=== PATIENT | female | born 1930 | race Caucasian/White ===

== ENCOUNTER 2016-05-06 07:41 | Emergency (ER) | payer MEDICARE, MEDICAID ==
[~2016-05-06] VITALS: Ht 167.6 cm; Wt 83.5 kg
--- OUTSIDE RECORDS SUMMARY | 2016-05-06 07:48 | XMS REPORT ---
Author Author [facility] Organization [facility] Address [address] [place], [place] [address] Phone [phone] Care Team Providers Care [employer] Communications Sergeant Name Role Phone RAYMON PHAN MD PP [phone] Summary purpose CCDA Sent to [facility] Chief Complaint and Reason for Visit Admit Diagnosis 1 Sexually inappropriate behavior, aggress Problem list No authorized problems tracked for continuity of care are available for this visit. Encounters No authorized problems tracked for encounter diagnoses are available for this visit. Medications No medications recorded for this patient visit Allergies, adverse reactions, alerts No allergy information is available for this patient. Immunizations No immunizations recorded for this patient visit Relevant diagnostic tests and/or laboratory data No authorized results are available for this patient visit History of procedures No procedures recorded for this patient visit. Functional status No functional or cognitive status observations are available for this visit. Vital signs No authorized vital signs are available for this visit. Social history No Social History or smoking status observations were recorded for this visit. ( Unknown if ever smoked.) Treatment Plan No treatment plan text is available for this visit. Hospital discharge instructions No discharge instruction text is available for this visit.
[2016-05-06] MEDS ORDERED: LEVO50TA6 (07:58)
[2016-05-06] MEDS ORDERED: GABA-488 (07:58)
[2016-05-06] MEDS ORDERED: LACT10SO (07:58)
[2016-05-06] MEDS ORDERED: ALPR0.254 (07:58)
[2016-05-06] MEDS ORDERED: OXYB5TAB (07:58)
[2016-05-06] MEDS ORDERED: QUET25TA73 (07:58)
[2016-05-06 08:08] LABS: BILIRUBIN,URINE NEGATIVE (NEGATIVE); KETONES,URINE NEGATIVE (NEGATIVE); LEUKOCYTE ESTERASE ,URINE 1+ (NEGATIVE); NITRITE,URINE NEGATIVE (NEGATIVE); PH,URINE 7 (5-9); PROTEIN,URINE NEGATIVE (NEGATIVE); UROBILINOGEN,URINE NORMAL (NORMAL)
[2016-05-06 08:08] LABS: BASOPHILS % (AUTO) 0 % (0-10); EOSINOPHILS # (AUTO) 0.1 10^3/uL (0.0-0.3); EOSINOPHILS % (AUTO) 2 % (0-10); LYMPHOCYTES % (AUTO) 19 % (12-44); MEAN CORPUSCULAR HEMOGLOBIN 31 PG (25-34); MEAN CORPUSCULAR HGB CONC 33 G/DL (32-36); MEAN CORPUSCULAR VOLUME 94 FL (80-99); MEAN PLATELET VOLUME 10.3 FL (7.4-10.4); MONOCYTES # (AUTO) 0.4 X 10^3 (0.0-1.0); MONOCYTES % (AUTO) 8 % (0-12); NEUTROPHILS # (AUTO) 3.6 X 10^3 (1.8-7.8); NEUTROPHILS % (AUTO) 70 % (42-75); PLATELET COUNT 189 10^3/uL (130-400); RED BLOOD COUNT 4.77 10^6/uL (4.35-5.85); RED CELL DISTRIBUTION WIDTH 14.9 % (10.0-14.5); WHITE BLOOD COUNT 5.1 10^3/uL (4.3-11.0)
--- NOTE | 2016-05-06 08:09 | ED Trauma-Multisystem ---
General Chief Complaint: Trauma-Non Activation Stated Complaint: FALL/BACK PAIN Source of Information: Patient Exam Limitations: No Limitations History of Present Illness Time Seen by Provider: 08:03 Initial Comments The patient is in 86-year-old white female from the halfway in [place]. She is stated to be demented but ambulatory. She apparently had fallen at the facility. She had a noted skin change on her forehead and complained of pain in her legs. No deformity had been noted. She is very pleasant but clearly very demented Occurred: This Morning Pain/Injury Location: Head Method of Injury: Fall Associated Symptoms (Fall): Confusion Allergies and Home Medications Allergies Coded Allergies: codeine (Verified Allergy, Unknown, 05/06/16) Home Medications Alprazolam 0.25 Mg Tablet #120 (Reported) Gabapentin 300 Mg Capsule #90 (Reported) Lactulose 10 Gm/15 Ml Solution #946 (Reported) Levothyroxine Sodium 50 Mcg Tablet #30 (Reported) Oxybutynin Chloride 5 Mg Tab.er.24 #30 (Reported) Quetiapine Fumarate 25 Mg Tablet #120 (Reported) Constitutional: see HPI Eyes: No Symptoms Reported Ears: No Symptoms Reported Nose: No Symptoms Reported Mouth: No Symptoms Reported Throat: No Symptoms to Report Respiratory: no symptoms reported Cardiovascular: No Symptoms Reported Gastrointestinal: no symptoms reported Genitourinary: no symptoms reported Musculoskeletal: muscle pain Skin: no symptoms reported Psychiatric/Neurological: Cognitive Dysfunction Physical Exam Vital Signs Vital Sign - Last 12Hours 05/06/16 07:41 Temp 96.7 Pulse 72 Resp 18 B/P 134/82 Pulse Ox 96 O2 Delivery Room Air General Appearance: No Apparent Distress WD/WN Other (there is a small hematoma/abrasion at the hairline just left of the midline of the forehead) Eyes: Bilateral Eye Normal Inspection Ears, Nose, Throat: Hearing Grossly Normal No Evidence of ENT Injury No Dental Injury Neck: Full Range of Motion Normal Inspection Non Tender Supple Cardiovascular: Regular Rate, Rhythm No Edema No Gallop No JVD No Murmur Normal Peripheral Pulses Respiratory: Chest Non Tender Lungs Clear Normal Breath Sounds No Accessory Muscle Use No Respiratory Distress Back: Normal Inspection No CVA Tenderness No Vertebral Tenderness Extremity: Normal Capillary Refill Normal Inspection Normal Range of Motion Non Tender No Calf Tenderness No Pedal Edema Neurologic/Psychiatric: Alert No Motor/Sensory Deficits Normal Mood/Affect block trader II-XII Norm as Tested Lymphatic: No Adenopathy Comments There was a fresh hematoma over the left humeral head. There was tenderness to palpation but no apparent deformity. No bruising was noted over the hips or pelvis. There is no deformity evident and no rotation or shortening of the leg. A small hematoma was noted over the right patella. [place] Coma Score Best Eye Response ([place]): (4) Open Spontaneously Best Verbal Response ([place]): (5) Oriented Best Motor Response ([place]): (6) Obeys Commands Progress/Results/Core Measures Results/Orders Lab Results Laboratory Tests Test 05/06/16 07:50 05/06/16 07:55 Range/Units Urine Bacteria TRACE /HPF Urine Bilirubin NEGATIVE NEGATIVE Urine Casts NONE /LPF Urine Clarity CLEAR Urine Color YELLOW Urine Crystals NONE /LPF Urine Culture Indicated NO Urine Glucose (UA) NEGATIVE NEGATIVE Urine Ketones NEGATIVE NEGATIVE Urine Leukocyte Esterase 1+ H NEGATIVE Urine Mucus NEGATIVE /LPF Urine Nitrite NEGATIVE NEGATIVE Urine Protein NEGATIVE NEGATIVE Urine RBC NONE /HPF Urine RBC (Auto) NEGATIVE NEGATIVE Urine Specific [place] 1.010 L 1.016-1.022 Urine Squamous Epithelial Cells 0-2 /HPF Urine Urobilinogen NORMAL NORMAL MG/DL Urine WBC 0-2 /HPF Urine pH 7 5-9 Alanine Aminotransferase (ALT/SGPT) 14 0-55 U/L Albumin 3.4 3.2-4.5 G/DL Alkaline Phosphatase 57 40-136 U/L Anion Gap 10 5-14 MMOL/L Aspartate Amino Transf (AST/SGOT) 15 5-34 U/L BUN/Creatinine Ratio 14 Basophils # (Auto) 0.0 0.0-0.1 10^3/uL Basophils (%) (Auto) 0 0-10 % Blood Urea Nitrogen 12 7-18 MG/DL Calcium Level 8.6 8.5-10.1 MG/DL Carbon Dioxide Level 25 21-32 MMOL/L Chloride Level 108 H 98-107 MMOL/L Creatinine 0.85 0.60-1.30 MG/DL Eosinophils # (Auto) 0.1 0.0-0.3 10^3/uL Eosinophils (%) (Auto) 2 0-10 % Estimat Glomerular Filtration Rate > 60 Glucose Level 94 70-105 MG/DL Hematocrit 45 35-52 % Hemoglobin 14.6 11.5-16.0 G/DL Lymphocytes # (Auto) 1.0 1.0-4.0 X 10^3 Lymphocytes (%) (Auto) 19 12-44 % Mean Corpuscular Hemoglobin 31 25-34 PG Mean Corpuscular Hemoglobin Concent 33 32-36 G/DL Mean Corpuscular Volume 94 80-99 FL Mean Platelet Volume 10.3 7.4-10.4 FL Monocytes # (Auto) 0.4 0.0-1.0 X 10^3 Monocytes (%) (Auto) 8 0-12 % Neutrophils # (Auto) 3.6 1.8-7.8 X 10^3 Neutrophils (%) (Auto) 70 42-75 % Platelet Count 189 130-400 10^3/uL Potassium Level 4.0 3.6-5.0 MMOL/L Red Blood Count 4.77 4.35-5.85 10^6/uL Red Cell Distribution Width 14.9 H 10.0-14.5 % Sodium Level 143 135-145 MMOL/L Total Bilirubin 0.6 0.1-1.0 MG/DL Total Protein 5.6 L 6.4-8.2 G/DL White Blood Count 5.1 4.3-11.0 10^3/uL My Orders Orders-DEMETRICE REED MD Ct Head Wo (05/06/16 08:00) Cbc With Automated Diff (05/06/16 08:00) Comprehensive Metabolic Panel (05/06/16 08:00) Ua Culture If Indicated (05/06/16 08:00) Shoulder, Left, 3 Views (05/06/16 08:00) Pelvis (05/06/16 08:00) Saline Lock/Iv-Start (05/06/16 08:43) Vital Signs/I&O Vital Sign - Last 12Hours 05/06/16 07:41 Temp 96.7 Pulse 72 Resp 18 B/P 134/82 Pulse Ox 96 O2 Delivery Room Air Departure Communication Progress Notes CT of head was negative for intracranial pathology. X-rays of pelvis hips and left shoulder were also negative. Impression Impression: Primary Impression: fall Additional Impression: multiple contusions Disposition: 01 HOME, SELF-CARE Condition: Stable/Unchanged Departure-Patient Inst. Referrals: RAYMON PHAN MD (PCP/Family) Primary Care Physician DEMETRICE REED MD May 06, 2016 08:09
[2016-05-06 08:17] LABS: SQUAMOUS EPITHELIAL CELL,UR 0-2 /HPF; WBC,URINE 0-2 /HPF
[2016-05-06 08:24] LABS: ALANINE AMINOTRANSFERASE 14 U/L (0-55); ALBUMIN 3.4 G/DL (3.2-4.5); ANION GAP 10 MMOL/L (5-14); ASPARTATE AMINO TRANSFERASE 15 U/L (5-34); BILIRUBIN,TOTAL 0.6 MG/DL (0.1-1.0); BLOOD UREA NITROGEN 12 MG/DL (7-18); BUN/CREATININE RATIO 14; CALCIUM 8.6 MG/DL (8.5-10.1); CARBON DIOXIDE 25 MMOL/L (21-32); CHLORIDE 108 MMOL/L (98-107); CREATININE SERUM 0.85 MG/DL (0.60-1.30); GFR ESTIMATED > 60; GLUCOSE 94 MG/DL (70-105); SODIUM 143 MMOL/L (135-145); TOTAL PROTEIN 5.6 G/DL (6.4-8.2)
--- NOTE | 2016-05-06 08:49 | Diagnostic Imaging Report ---
PROCEDURE: CT head without contrast. TECHNIQUE: Multiple contiguous axial images were obtained through the brain without the use of intravenous contrast. INDICATION: Fell, bruise and swelling to left forehead. Comparison studies: None Findings: Noncontrast CT scanning of the head demonstrates moderate central and cortical atrophy and periventricular white matter disease. No focal areas of ischemia are present. No mass effect, midline shift or hemorrhage is seen. Soft tissue swelling is present over the left forehead. The paranasal sinuses and mastoid air cells are clear. IMPRESSION: 1. There is soft tissue swelling over the left forehead. 2. Atrophy and microvascular disease are present. Dictated by: Dictated on workstation # [id number]
--- NOTE | 2016-05-06 08:56 | Diagnostic Imaging Report ---
INDICATION: Left shoulder pain AP, oblique, and transscapular views of the left shoulder are obtained. No acute fracture or dislocation is seen. There is mild degenerative change of the AC joint. There is minimal distance between a comminuted humeral head suggesting chronic rotator cuff pathology. IMPRESSION: Chronic findings with no acute fracture or dislocation. Dictated by: Dictated on workstation # [id number]
--- NOTE | 2016-05-06 08:58 | Diagnostic Imaging Report ---
INDICATION: Found on floor with bilateral hip and back pain. FINDINGS: An AP view of the pelvis demonstrates postoperative changes to the left hip with no evidence of loosening. No fractures are present. Joint space narrowing is seen in both hips. IMPRESSION: There are no acute findings. Dictated by: Dictated on workstation # [id number]
[2016-05-06 10:42] VITALS: BP 189/90
== END 2016-05-06 10:46 ==
LOC: ER 07:44
DX: S00.81XA Abrasion of other part of head, initial encounter (principal); S80.01XA Contusion of right knee, initial encounter; S40.022A Contusion of left upper arm, initial encounter; F03.90 Unspecified dementia, unspecified severity, without behavioral disturbance, psychotic disturbance, mood disturbance, and anxiety; Z79.899 Other long term (current) drug therapy; W01.0XXA Fall on same level from slipping, tripping and stumbling without subsequent striking against object, initial encounter; Y92.129 Unspecified place in nursing home as the place of occurrence of the external cause; Y99.8 Other external cause status
CPT/HCPCS: 36415; 70450; 72170; 73030; 80053; 81000; 85025

== ENCOUNTER 2016-12-24 19:49 | Emergency (ER) | payer MEDICARE, MEDICAID ==
[~2016-12-24] VITALS: Ht 167.6 cm; Wt 83.5 kg
[~2016-12-24 19:49] MED LIST: ALPR0.254; GABA-488; LACT10SO; LEVO50TA6; OXYB5TAB; QUET25TA73
--- OUTSIDE RECORDS SUMMARY | 2016-12-24 20:00 | XMS REPORT ---
Author Author [facility] Medical Staff Organization [facility] Address [address] [place], [place] [id number] Phone [phone] Care Team Providers Care Production Utility Worker Name Role Phone RAYMON PHAN MD PP [phone] Summary purpose CCDA Sent to [facility] Chief Complaint and Reason for Visit No authorized Reason for Visit (Admitting Diagnosis) is available for this visit. Problem list No authorized problems tracked for [...] for this patient visit History of procedures Procedure Code Code Type Description Date Performed Performing Physician 34432 CPT-4 ELECTROCARDIOGRAM REPORT 04-24-2016 JOAN [place] Functional status No functional or cognitive status [...]
--- OUTSIDE RECORDS SUMMARY | 2016-12-24 20:00 | XMS REPORT | Continuity of Care Document ---
Author Author [facility] Address Unknown Phone Unavailable Allergies Medications Problems Date Dx Coded Attending Type Code Diagnosis Diagnosed By 05/04/2016 MILADY BANKS, COURTNEY Parnell F01.51 Vascular dementia with behavioral disturbance 05/04/2016 COURTNEY HENNING MD F31.13 Bipolar disord, crnt epsd manic w/o psych features, severe Procedures Results Encounters ACCT No. Visit Date/Time Discharge Status Pt. Type Provider Facility Loc./Unit Complaint [id number] 04/24/2016 19:40:00 05/04/2016 08 :10:00 DIS Inpatient COURTNEY HENNING MD [facility]
--- OUTSIDE RECORDS SUMMARY | 2016-12-24 20:00 | XMS REPORT ---
Author Author [facility] Medical Staff Organization [facility] Address [address] [place], [place] [id number] Phone [phone] Care Team Providers Care Senior Property Accountant Name Role Phone RAYMON PHAN MD PP [phone] Summary purpose CCDA Sent to [facility] Chief Complaint and Reason for Visit Admit [...]
[2016-12-24] MEDS ORDERED: NS IV 1000 ML 1,000 ML IV ONE (20:16)
[2016-12-24 20:34] LABS: BASOPHILS % (AUTO) 0 % (0-10); EOSINOPHILS # (AUTO) 0.1 10^3/uL (0.0-0.3); EOSINOPHILS % (AUTO) 1 % (0-10); LYMPHOCYTES # (AUTO) 0.8 X 10^3 (1.0-4.0); LYMPHOCYTES % (AUTO) 11 % (12-44); MEAN CORPUSCULAR HEMOGLOBIN 30 PG (25-34); MEAN CORPUSCULAR HGB CONC 33 G/DL (32-36); MEAN CORPUSCULAR VOLUME 92 FL (80-99); MEAN PLATELET VOLUME 10.5 FL (7.4-10.4); MONOCYTES # (AUTO) 0.5 X 10^3 (0.0-1.0); MONOCYTES % (AUTO) 7 % (0-12); NEUTROPHILS % (AUTO) 82 % (42-75); PLATELET COUNT 152 10^3/uL (130-400); RED CELL DISTRIBUTION WIDTH 14.6 % (10.0-14.5); WHITE BLOOD COUNT 7.4 10^3/uL (4.3-11.0)
[2016-12-24 20:55] LABS: ALANINE AMINOTRANSFERASE 9 U/L (0-55); ALBUMIN 3.6 GM/DL (3.2-4.5); ANION GAP 9 MMOL/L (5-14); ASPARTATE AMINO TRANSFERASE 16 U/L (5-34); BLOOD UREA NITROGEN 13 MG/DL (7-18); BUN/CREATININE RATIO 16; CALCIUM 9.5 MG/DL (8.5-10.1); CARBON DIOXIDE 27 MMOL/L (21-32); CHLORIDE 106 MMOL/L (98-107); CREATININE SERUM 0.79 MG/DL (0.60-1.30); GFR ESTIMATED > 60; GLUCOSE 134 MG/DL (70-105); MAGNESIUM 2.3 MG/DL (1.8-2.4); POTASSIUM 4.2 MMOL/L (3.6-5.0); SODIUM 142 MMOL/L (135-145); TOTAL PROTEIN 6.3 GM/DL (6.4-8.2)
[2016-12-24 21:15] LABS: TROPONIN I < 0.30 NG/ML (<0.30)
--- NOTE | 2016-12-24 21:29 | Diagnostic Imaging Report ---
INDICATION: Post fall. TECHNIQUE: Single-view chest, 9:14 p.m. CORRELATION STUDY: None. FINDINGS: Heart size is within normal limits. Mediastinum is prominent and slightly widened. Vasculature is slightly prominent as well. Prominent interstitial markings, likely chronic in nature. No definitive superimposed infiltrate, effusion, or pneumothorax. No acute appearing displaced fracture. IMPRESSION: 1. Likely chronic change in the lung parenchyma. Mediastinum is somewhat prominent, maybe owing to tortuous ectatic thoracic aorta. Dictated by: Dictated on workstation # [id number]
--- NOTE | 2016-12-24 21:33 | Diagnostic Imaging Report ---
INDICATION: Post fall TECHNIQUE: AP pelvis 9:14 PM CORRELATION STUDY: 05/06/2016 FINDINGS: Surgical change of the proximal left femur again demonstrated with incomplete visualization of the hardware. Joint space narrowing present. The right hip appears to be maintained apart from mild narrowing. Pelvis is intact. Apparent suture line in the midline of the pelvis. SI joints unremarkable. IMPRESSION: Negative for acute fracture of the pelvis. Prior surgical changes of the proximal left femur. Dictated by: Dictated on workstation # [id number]
--- NOTE | 2016-12-24 21:38 | Diagnostic Imaging Report ---
PROCEDURE: CT head and CT cervical spine without contrast. TECHNIQUE: Multiple contiguous axial images were obtained through the brain and cervical spine without the use of intravenous contrast. Sagittal and coronal reformations through the cervical spine were then performed. INDICATION: Status post fall on face with neck pain. Dementia. CORRELATION STUDY: 05/06/2016. FINDINGS: CT HEAD: There are generalized atrophic changes. Scattered areas of decreased attenuation, likely owing to chronic small vessel ischemic disease. Findings may be slightly greater involving the left temporal lobe. No abnormal areas of decreased attenuation to suggest edema. No intracranial hemorrhage. No midline shift or mass effect. Partial opacification of the mastoid air cells. CT CERVICAL SPINE: Reformatted images demonstrate relatively normal alignment. Cervical vertebral body heights are maintained. Diffuse mild disc space narrowing. Findings are most pronounced at the C6-C7 levels. Osteophyte results in a mild encroachment on the foramina and mild narrowing at this level. Posterior elements demonstrate asymmetric areas of hypertrophic facet arthropathy. There is likely fusion across the facet joints at the C2-C3, C3-C4 and C4-C5 levels of various degrees on right and left aspect. Odontoid intact. Lateral masses of C1 and C2 are aligned. Occipital condyles are unremarkable. Vascular calcifications at the carotid bifurcations. Lung apices are unremarkable. IMPRESSION: CT HEAD: 1. Negative for acute traumatic intracranial abnormality. 2. Generalized atrophic changes with changes of likely small vessel ischemic disease. CT CERVICAL SPINE: 1. Negative for acute fracture or traumatic subluxation. Multilevel cervical spondylosis. Asymmetric hypertrophic facet arthropathy. Dictated by: Dictated on workstation # [id number]
--- NOTE | 2016-12-24 21:41 | ED Fall/Injury ---
General Chief Complaint: Trauma-Non Activation Stated Complaint: FALL Nursing Triage Note: PT WAS BROUGHT TO ROOM BY [facility]. C-COLLAR IN PLACE. PT IS FROM [facility] AND HAD A FALL. PT HAS DEMENTIA BUT IS C/O FACE AND NOSE PAIN. Source: patient, family, senior living records Exam Limitations: no limitations History of Present Illness Location Injury Occurred: [facility] Allergies and Home Medications Allergies Coded Allergies: codeine (Verified Allergy, Unknown, 05/06/16) Home Medications Alprazolam 0.25 Mg Tablet, #120 (Reported) Gabapentin 300 Mg Capsule, #90 (Reported) Lactulose 10 Gm/15 Ml Solution, #946 (Reported) Levothyroxine Sodium 50 Mcg Tablet, #30 (Reported) Oxybutynin Chloride 5 Mg Tab.er.24, #30 (Reported) Quetiapine Fumarate 25 Mg Tablet, #120 (Reported) Past Qpskvux-Bfkcsq-Pvqifc Hx Patient Social History Alcohol Use: Denies Use Recreational Drug Use: No Smoking Status: Never a Smoker 2nd Hand Smoke Exposure: No Recent Foreign Travel: No Contact w/Someone Who Travel: No Recent Infectious Disease Expo: No Recent Hopitalizations: No Physical Abuse: No Sexual Abuse: No Seasonal Allergies Seasonal Allergies: No Surgeries History of Surgeries: No Respiratory History of Respiratory Disorde: No Cardiovascular History of Cardiac Disorders: Yes Cardiac Disorders: Hypertension Neurological History of Neurological Disord: Yes Neurological Disorders: Dementia Reproductive System Hx Reproductive Disorders: No Genitourinary History of Genitourinary Disor: Yes Genitourinary Disorders: UTI-Chronic Gastrointestinal History of Gastrointestinal Di: No Musculoskeletal History of Musculoskeletal Dis: No Endocrine History of Endocrine Disorders: Yes Endocrine Disorders: Hypothyroidsim HEENT History of HEENT Disorders: No Cancer History of Cancer: No Psychosocial History of Psychiatric Problem: No Suicide Risk Score: 0 Integumentary History of Skin or Integumenta: No Blood Transfusions History of Blood Disorders: No Physical Exam Vital Signs Vital Sign - Last 12Hours 12/24/16 19:49 Temp 97.8 Pulse 76 Resp 16 B/P (MAP) 184/89 Pulse Ox 98 O2 Delivery Nasal Cannula O2 Flow Rate 1.00 Capillary Refill : Less Than 3 Seconds Progress/Results/Core Measures Results/Orders Lab Results Laboratory Tests Test 12/24/16 20:03 10/20/17 22:00 Range/Units White Blood Count 7.4 4.3-11.0 10^3/uL Red Blood Count 5.00 4.35-5.85 10^6/uL Hemoglobin 15.1 11.5-16.0 G/DL Hematocrit 46 35-52 % Mean Corpuscular Volume 92 80-99 FL Mean Corpuscular Hemoglobin 30 25-34 PG Mean Corpuscular Hemoglobin Concent 33 32-36 G/DL Red Cell Distribution Width 14.6 H 10.0-14.5 % Platelet Count 152 130-400 10^3/uL Mean Platelet Volume 10.5 H 7.4-10.4 FL Neutrophils (%) (Auto) 82 H 42-75 % Lymphocytes (%) (Auto) 11 L 12-44 % Monocytes (%) (Auto) 7 0-12 % Eosinophils (%) (Auto) 1 0-10 % Basophils (%) (Auto) 0 0-10 % Neutrophils # (Auto) 6.0 1.8-7.8 X 10^3 Lymphocytes # (Auto) 0.8 L 1.0-4.0 X 10^3 Monocytes # (Auto) 0.5 0.0-1.0 X 10^3 Eosinophils # (Auto) 0.1 0.0-0.3 10^3/uL Basophils # (Auto) 0.0 0.0-0.1 10^3/uL Sodium Level 142 135-145 MMOL/L Potassium Level 4.2 3.6-5.0 MMOL/L Chloride Level 106 98-107 MMOL/L Carbon Dioxide Level 27 21-32 MMOL/L Anion Gap 9 5-14 MMOL/L Blood Urea Nitrogen 13 7-18 MG/DL Creatinine 0.79 0.60-1.30 MG/DL Estimat Glomerular Filtration Rate > 60 BUN/Creatinine Ratio 16 Glucose Level 134 H 70-105 MG/DL Calcium Level 9.5 8.5-10.1 MG/DL Magnesium Level 2.3 1.8-2.4 MG/DL Total Bilirubin 1.0 0.1-1.0 MG/DL Aspartate Amino Transf (AST/SGOT) 16 5-34 U/L Alanine Aminotransferase (ALT/SGPT) 9 0-55 U/L Alkaline Phosphatase 53 40-136 U/L Troponin I < 0.30 <0.30 NG/ML Total Protein 6.3 L 6.4-8.2 GM/DL Albumin 3.6 3.2-4.5 GM/DL TSH Collier Testing 1.91 0.35-4.94 UIU/ML Urine Color YELLOW Urine Clarity VERY CLOUDY H Urine pH 8 5-9 Urine Specific [employer] 1.010 L 1.016-1.022 Urine Protein NEGATIVE NEGATIVE Urine Glucose (UA) NEGATIVE NEGATIVE Urine Ketones 1+ H NEGATIVE Urine Nitrite POSITIVE H NEGATIVE Urine Bilirubin NEGATIVE NEGATIVE Urine Urobilinogen NORMAL NORMAL MG/DL Urine Leukocyte Esterase 3+ H NEGATIVE Urine RBC (Auto) 2+ H NEGATIVE Urine RBC 2-5 H /HPF Urine WBC 25-50 H /HPF Urine Squamous Epithelial Cells 2-5 /HPF Urine Renal Epithelial Cells 0-2 /HPF Urine Crystals PRESENT H /LPF Urine Amorphous Sediment MOD MISHEL PHOSPHATE H /LPF Urine Bacteria LARGE H /HPF Urine Casts NONE /LPF Urine Mucus NEGATIVE /LPF Urine Culture Indicated YES My Orders Orders - SHELLY MERCER PA Cbc With Automated Diff (12/24/16 20:16) Comprehensive Metabolic Panel (12/24/16 20:16) Magnesium (12/24/16 20:16) Thyroid Analyzer (12/24/16 20:16) Troponin I (12/24/16 20:16) Ua Culture If Indicated (12/24/16 20:16) Ct Head/Cervical Spine Wo (12/24/16 20:16) Chest 1 View, Ap/Pa Only (12/24/16 20:16) Pelvis (12/24/16 20:16) Ns Iv 1000 Ml (Sodium Chloride 0.9%) (12/24/16 20:16) Ct Thoracic/Lumbar Spine Wo (12/24/16 20:16) Urine Culture (12/24/16 22:00) Ceftriaxone Injection (Rocephin Injectio (12/24/16 22:45) Medications Given in ED Current Medications Medications Dose Ordered Sig/Yao Route Start Time Stop Time Status Last Admin Dose Admin Ceftriaxone Sodium 1000 mg/ Sodium Chloride 50 ml @ 100 mls/hr ONCE ONCE IV 12/24/16 22:45 12/24/16 23:14 DC 12/24/16 23:08 100 MLS/HR Sodium Chloride 1,000 ml @ 0 mls/hr Q0M ONCE IV 12/24/16 20:16 12/24/16 20:18 DC 12/24/16 21:26 1,000 MLS/HR Vital Signs/I&O Vital Sign - Last 12Hours 12/24/16 19:49 Temp 97.8 Pulse 76 Resp 16 B/P (MAP) 184/89 Pulse Ox 98 O2 Delivery Nasal Cannula O2 Flow Rate 1.00 Intake and Output 12/25/16 00:00 Intake Total 1000 ml Balance 1000 ml Blood Pressure Mean: 120 Departure Impression Impression: Primary Impression: Urinary tract infection Additional Impressions: Fall Minor head injury Disposition: XF SNF Condition: Stable Departure-Patient Inst. Decision time for Depature: 23:31 Referrals: RAYMON PHAN MD (PCP/Family) Primary Care Physician Patient Instructions: Minor Head Injury (DC), Urinary Tract Infection, Adult ( DC) Add. Discharge Instructions: All discharge instructions reviewed with patient and/or family. Voiced understanding. Medications as instructed. Continue usual home medications. I will see the patient at [facility] in one week for recheck. Return to the emergency department for worsened pain, changes in behavior, changes in vision, slurred speech, neck pain, back pain, seizure, shortness of air, vomiting, chest pain, or any other concerns. Scripts Cephalexin (Cephalexin) 500 Mg Capsule 500 MG PO TID, #21 CAP 0 Refills Prov: SHELLY MERCER 12/24/16 SHELLY MERCER Dec 24, 2016 21:41
--- NOTE | 2016-12-24 21:44 | Diagnostic Imaging Report ---
INDICATION: Status post fall with pain. TECHNIQUE: Noncontrast CT imaging of the thoracic and lumbar spine with sagittal and coronal reformatted images.. CORRELATION STUDY: None. FINDINGS: The thoracic kyphotic curvature is maintained. Thoracic vertebral body heights overall are preserved. No acute appearing compression deformity. Multilevel thoracic spondylosis. Endplate osteophytes, particularly anteriorly. No suggestion for high degree osseous narrowing of the canal and/or foramina. Posterior elements appear to be intact. Lumbar spinal alignment is also relatively anatomic with preservation of the lumbar vertebral body height. Endplate lipping, particularly anteriorly. Mild diffuse disc space narrowing. More prominent vacuum disc phenomena at the L5-S1 level. Transitional anatomy at the lumbosacral junction. No spondylolysis or spondylolisthesis. Lung snyder with likely areas of fibrosis and dependent atelectasis. IMPRESSION: Negative for acute fracture or traumatic subluxation of the thoracic and/or lumbar spine. Mild degenerative changes, not abnormal given the patient's age. Dictated by: Dictated on workstation # [id number]
[2016-12-24 22:24] LABS: BILIRUBIN,URINE NEGATIVE (NEGATIVE); KETONES,URINE 1+ (NEGATIVE); LEUKOCYTE ESTERASE ,URINE 3+ (NEGATIVE); NITRITE,URINE POSITIVE (NEGATIVE); PH,URINE 8 (5-9); PROTEIN,URINE NEGATIVE (NEGATIVE); UROBILINOGEN,URINE NORMAL (NORMAL)
[2016-12-24 22:37] LABS: RENAL EPITHELIAL CELLS,URINE 0-2 /HPF; WBC,URINE 25-50 /HPF
[2016-12-24] MEDS ORDERED: cefTRIAXone INJECTION 1,000 MG in NS (IVPB) 50 ML IV ONE (22:45)
[2016-12-24] MEDS ORDERED: CEPH500C PO (23:31)
[2016-12-25 00:19] VITALS: BP 184/89
== END 2016-12-25 00:19 ==
LOC: ER 19:49 → EDUNIT# 19:49 → ER 12-25 00:19
DX: S09.90XA Unspecified injury of head, initial encounter (principal); N39.0 Urinary tract infection, site not specified; F03.90 Unspecified dementia, unspecified severity, without behavioral disturbance, psychotic disturbance, mood disturbance, and anxiety; I10 Essential (primary) hypertension; E03.9 Hypothyroidism, unspecified; Z87.440 Personal history of urinary (tract) infections; W19.XXXA Unspecified fall, initial encounter
CPT/HCPCS: 36415; 70450; 71010; 72125; 72128; 72131; 72170; 80053; 81000; 83735; 84443; 84484; 85025; 87077; 87088; 87186; 96361; 96365